=== PATIENT | female | born 1995 | race Caucasian/White ===

== ENCOUNTER → 2017-08-14 | Outpatient (CLI) | payer BC, OTHER | LOC: CIMAGING 07:57 | PROVIDERS: ATTEND Physician Assistant | DX: R11.0 Nausea (principal) | CPT/HCPCS: 76700-PO ==

== ENCOUNTER → 2017-11-30 | Outpatient (CLI) | payer OTHER | LOC: BRMIMAGING 13:56 | DX: Z13.820 Encounter for screening for osteoporosis (principal); N91.1 Secondary amenorrhea; E23.0 Hypopituitarism; F50.01 Anorexia nervosa, restricting type ==